=== PATIENT | female | born 1970 | race Caucasian/White ===

== ENCOUNTER 2017-09-21 16:57 | Emergency (ER) | payer OTHER ==
[2017-09-21 17:07] VITALS: TEMP 97.9; BMI 28.3
[2017-09-21] MEDS ORDERED: ASPIRIN 81 MG CHEWABLE TABLETS PO ONE (18:02)
[2017-09-21] MEDS ORDERED: ASPIRIN 81 MG CHEWABLE TABLETS ONE (18:04)
[2017-09-21 18:25] LABS: BASOPHIL 0.7 % (0-2.0); EOSINOPHIL 6.7 % (0-4.5); MCHC 33.9 g/dl (32.0-36.0); MEAN CELL VOLUME 85.7 fl (80-96); MEAN PLT VOLUME 10.3 fl (7.5-11.1); PLATELET COUNT 204 K/MM3 (134-434); RDW 14.3 % (11.6-15.6); WHITE BLOOD COUNT 10.8 K/mm3 (4.0-10.0)
[2017-09-21 18:38] LABS: INR 1.01 (0.82-1.09); PROTHROMBIN TIME (PATIENT) 11.4 SEC (9.98-11.88)
--- NOTE | 2017-09-21 18:44 | PDOC ---
History of Present Illness - General History Source: Patient Exam Limitations: No Limitations <Kurt Box - Last Filed: 09/21/17 19:26> <Karolina Fuentes - Last Filed: 09/21/17 23:10> - General Chief Complaint: Chest Pain Stated Complaint: CHEST PAIN Time Seen by Provider: 09/21/17 17:17 - History of Present Illness Initial Comments: 09/21/17 19:27 The patient is a 47 year old female, with a significant past medical history of HTN, and diabetes, who presents to the emergency department with chest pain and shortness of breath for the past day. She reports that her chest pain ranges from mild to moderate, without radiation. She rates the pain a 8/10 in severity. She reports that taking a deep breath exacerbates the pain. She notes that she had chest pain in the past, usually resolving but now has lingered. She reports that she has taken all her hypertension medication today. The patient denies headache and dizziness. Denies fever, chills, nausea, vomit, diarrhea and constipation. Denies dysuria, frequency, urgency and hematuria. Allergies: None reported. Past Surgical History: Cholecystectomy, Tubal ligation Social History: No alcohol, tobacco or drug use reported PCP: Dr. Gifty Knight (Kurt Box) Past History <Kurt Box - Last Filed: 09/21/17 19:26> - Past Medical History COPD: No DVT: No Dementia: No Diabetes: Yes HTN: Yes Liver Disease: Yes (Hep B) - Surgical History Cholecystectomy: Yes - Immunization History Immunization Up to Date: Yes - Suicide/Smoking/Psychosocial Hx Smoking Status: No Smoking History: Never smoked Have you smoked in the past 12 months: No Number of Cigarettes Smoked Daily: 0 Information on smoking cessation initiated: No Hx Alcohol Use: No Drug/Substance Use Hx: No Substance Use Type: None <Karolina Fuentes - Last Filed: 09/21/17 23:10> - Past Medical History Allergies/Adverse Reactions: Allergies Allergy/AdvReac Type Severity Reaction Status Date / Time No Known Allergies Allergy Verified 09/21/17 17:04 Home Medications: Ambulatory Orders Amlodipine Besylate [Norvasc -] 10 mg PO DAILY 08/29/16 Metformin HCl 500 mg PO DAILY 09/21/17 Review of Systems - Review of Systems Able to Perform ROS?: Yes <Kurt Box - Last Filed: 09/21/17 19:26> <Karolina Fuentes - Last Filed: 09/21/17 23:10> - Review of Systems Comments:: 09/21/17 19:27 GENERAL/CONSTITUTIONAL: No fever or chills. No weakness. HEAD, EYES, EARS, NOSE AND THROAT: No change in vision. No ear pain or discharge. No sore throat.- CARDIOVASCULAR: (+) Chest pain and shortness of breath RESPIRATORY: No cough, wheezing, or hemoptysis. GASTROINTESTINAL: No nausea, vomiting, diarrhea or constipation. GENITOURINARY: No dysuria, frequency, or change in urination. MUSCULOSKELETAL: No joint or muscle swelling or pain. No neck or back pain. SKIN: No rash NEUROLOGIC: No headache, vertigo, loss of consciousness, or change in strength/ sensation. ENDOCRINE: No increased thirst. No abnormal weight change HEMATOLOGIC/LYMPHATIC: No anemia, easy bleeding, or history of blood clots. ALLERGIC/IMMUNOLOGIC: No hives or skin allergy. (Kurt Box) *Physical Exam <Kurt Box - Last Filed: 09/21/17 19:26> <Karolina Fuentes - Last Filed: 09/21/17 23:10> - Vital Signs Last Vital Signs Temp Pulse Resp BP Pulse Ox 97.9 F 99 H 18 148/72 100 09/21/17 17:04 09/21/17 18:13 09/21/17 18:13 09/21/17 18:13 09/21/17 18:13 - Physical Exam Comments: 09/21/17 19:26 GENERAL: Awake, alert, and fully oriented, in no acute distress HEAD: No signs of trauma, normocephalic, atraumatic EYES: PERRLA, EOMI, sclera anicteric, conjunctiva clear ENT: Auricles normal inspection, hearing grossly normal, nares patent, oropharynx clear without exudates. Moist mucosa NECK: Normal ROM, supple, no lymphadenopathy, JVD, or masses LUNGS: No distress, speaks full sentences, clear to auscultation bilaterally HEART: Regular rate and rhythm, normal S1 and S2, no murmurs, rubs or gallops, peripheral pulses normal and equal bilaterally. ABDOMEN: Soft, nontender, normoactive bowel sounds. No guarding, no rebound. No masses EXTREMITIES : Normal inspection, Normal range of motion, no edema. No clubbing or cyanosis. NEUROLOGICAL: Cranial nerves II through XII grossly intact. Normal speech, normal gait, no focal sensorimotor deficits SKIN: Warm, Dry, normal turgor, no rashes or lesions noted. (Kurt Box) ED Treatment Course - LABORATORY CBC & Chemistry Diagram: 09/21/17 18:15 09/21/17 18:15 <Kurt Box - Last Filed: 09/21/17 19:26> - LABORATORY CBC & Chemistry Diagram: 09/21/17 18:15 09/21/17 18:15 <Karolina Fuentes - Last Filed: 09/21/17 23:10> - ADDITIONAL ORDERS Additional order review: Laboratory Results 09/21/17 09/21/17 09/21/17 22:22 18:15 18:15 PT with INR 11.40 INR 1.01 Sodium 140 Potassium 3.5 Chloride 105 Carbon Dioxide 28 Anion Gap 7 L BUN 15 D Creatinine 0.7 Creat Clearance w eGFR > 60 Random Glucose 167 H D Calcium 8.7 Magnesium 2.1 Total Bilirubin 0.3 D AST 65 H ALT 99 H D Alkaline Phosphatase 307 H D Creatine Kinase 110 130 Troponin I < 0.02 < 0.02 Total Protein 7.5 Albumin 3.7 09/21/17 18:15 RBC 5.01 MCV 85.7 MCHC 33.9 RDW 14.3 D MPV 10.3 D Neutrophils % 54.0 Lymphocytes % 33.1 Monocytes % 5.5 Eosinophils % 6.7 H Basophils % 0.7 - RADIOLOGY Radiology Studies Ordered: Category Date Time Status CHEST PA & LAT [RAD] Stat Radiology 09/21/17 19:25 Taken - Medications Given in the ED: ED Medications Discontinued Medications Generic Name Dose Route Start Last Admin Trade Name Freq PRN Reason Stop Dose Admin Acetaminophen 650 mg 09/21/17 19:13 09/21/17 19:25 Tylenol - PO 09/21/17 19:14 650 mg ONCE ONE Administration Aspirin 162 mg 09/21/17 18:02 09/21/17 18:24 Asa - PO 09/21/17 18:03 162 mg ONCE ONE Administration *DC/Admit/Observation/Transfer <Kurt Box - Last Filed: 09/21/17 19:26> <Karolina Fuentes - Last Filed: 09/21/17 23:10> Diagnosis at time of Disposition: Chest pain Qualifiers: Chest pain type: unspecified Qualified Code(s): R07.9 - Chest pain, unspecified - Discharge Dispostion Disposition: HOME Condition at time of disposition: Stable - Referrals Referrals: Gifty Knight MD [Primary Care Provider] - - Patient Instructions Printed Discharge Instructions: DI for Atypical Chest Pain Additional Instructions: please follow up with your regular physician return for any worsening symptoms - Post Discharge Activity - Attestations Scribe Attestion: 09/21/17 19:26 Documentation prepared by Kurt Box, acting as paramedical aide for Karolina Fuentes MD (Kurt Box)
[2017-09-21 18:54] VITALS: BP 148/72; PULSE 99
[2017-09-21 18:57] LABS: ALBUMIN 3.7 g/dl (3.4-5.0); ANION GAP 7 (8-16); BILIRUBIN,TOTAL 0.3 mg/dL (0.2-1.0); CALCIUM 8.7 mg/dL (8.5-10.1); CO2 28 mmol/L (21-32); CREATININE 0.7 mg/dL (0.55-1.02); GLUCOSE,RANDOM 167 mg/dL (74-106); MAGNESIUM 2.1 mg/dL (1.8-2.4); SGOT/AST 65 U/L (15-37); SGPT/ALT 99 U/L (12-78); TOT PROT 7.5 g/dl (6.4-8.2)
[2017-09-21 18:59] LABS: ALK PHOS 307 U/L (45-117); CPK 130 IU/L (26-192); TROPONIN I < 0.02 ng/ml (0.00-0.05)
[2017-09-21] MEDS ORDERED: ACETAMINOPHEN 325 MG TABLET (FP) PO ONE (19:13)
[2017-09-21] MEDS ORDERED: ACETAMINOPHEN 325 MG TABLET (FP) ONE (19:21)
[2017-09-21 23:06] LABS: CPK 110 IU/L (26-192); TROPONIN I < 0.02 ng/ml (0.00-0.05)
--- NOTE | 2017-09-22 14:05 | EKG ---
Test Reason : Blood Pressure : / mmHG Vent. Rate : 084 BPM Atrial Rate : 084 BPM P-R Int : 130 ms QRS Dur : 086 ms QT Int : 370 ms P-R-T Axes : 010 043 027 degrees QTc Int : 437 ms NORMAL SINUS RHYTHM POSSIBLE LEFT ATRIAL ENLARGEMENT NONSPECIFIC ST ABNORMALITY ABNORMAL ECG WHEN COMPARED WITH ECG OF 27-JUL-2009 08:58, T WAVE VARIATION Confirmed by MALLY LIMA MD ([id number]) on 09/22/2017 2:05:23 PM Referred By: Confirmed By:MALLY LIMA MD
== END 2017-09-21 23:14 | disposition home or self-care (01) ==
LOC: JER 16:57
DX: R07.89 Other chest pain (principal); I10 Essential (primary) hypertension; E11.9 Type 2 diabetes mellitus without complications; Z79.84 Long term (current) use of oral hypoglycemic drugs
CPT/HCPCS: 36415; 71020-TC; 80053; 82550; 83735; 84484; 85025; 85610; 93005; 93010; 99285-25